=== PATIENT | male | born 1955 | race Caucasian/White ===

== ENCOUNTER 2016-07-29 09:36 | Inpatient (IN) | payer BC ==
[2016-07-29] MEDS ORDERED: SODIUM CHLORIDE 0.9% 1000ML 1,000 ML IV ONE (09:40)
[2016-07-29] MEDS ORDERED: PIPERACILLIN/TAZOBACT 3.375 GM PDS IV ONE ×2 (10:22→14:54)
[2016-07-29] MEDS: SODIUM CHLORIDE 0.9% FLUSH 10 ML SOL IV PRN ×2 (10:26→16:14)
[2016-07-29] MEDS: PIPERACILLIN/TAZOBACT 3.375 GM 3.375 GM in SODIUM CHLORIDE 0.9% 100 ML 100 ML IV SCH ×2 (10:31→15:28)
[2016-07-29] MEDS ORDERED: PROCHLORPERAZINE MALEATE 5 MG TAB PO PRN (12:17)
[2016-07-29] MEDS ORDERED: MAGIC MOUTHWASH 120 ML KIT PO PRN (12:17)
[2016-07-29] MEDS ORDERED: APAP/OXYCODONE 325/5 TAB PO PRN (12:17)
[2016-07-29 14:17] LABS: APPEARANCE,URINE Slightly Cloudy; BILIRUBIN,URINE NEGATIVE (NEGATIVE); COLOR,URINE Yellow; GLUCOSE, URINE (UA) NEGATIVE (NEGATIVE); KETONES,URINE NEGATIVE (NEGATIVE); LEUKOCYTE ESTERASE ,URINE NEGATIVE (NEGATIVE); NITRATE,URINE NEGATIVE (NEGATIVE); OCCULT BLOOD,URINE TRACE LYSED (NEG-TRACE); UROBILINOGEN,URINE 0.2 (0.2-1.0 EU)
[2016-07-29 14:44] LABS: RBC,URINE 0-2 (0-3AV/HPF)
[2016-07-29] MEDS ORDERED: SODIUM CHLORIDE 0.9% 100 ML 100 ML IV ONE (14:54)
[2016-07-29] MEDS ORDERED: FILGRASTIM 480 MCG/1.6 ML SC SCH (15:06)
[2016-07-29] MEDS: ACETAMINOPHEN 500 MG 500 MG TAB PO PRN ×2 (15:08→17:00)
[2016-07-29] MEDS: SODIUM CHLORIDE 0.9% 1000ML 1,000 ML IV ONE ×2 (16:25→17:33)
[2016-07-29] MEDS ORDERED: VANCOMYCIN HCL 500 MG PDS 2,000 MG in SODIUM CHLORIDE 0.9% 500 ML 500 ML IV ONE (16:49)
[2016-07-29] MEDS ORDERED: VANCOMYCIN HYDROCHLORIDE 500 MG PDS IV ONE (16:51)
[2016-07-29] MEDS ORDERED: NOREPINEPHRINE BITARTRATE 4 MG/4 ML SOL IV PRN (18:00)
[2016-07-29] MEDS ORDERED: NOREPINEPHRINE BITARTRATE 4 MG/4 ML SOL IV ONE (18:04)
[2016-07-29 18:06] VITALS: BP 86/39; PULSE 102; RESP 22; TEMP 99.3; O2SAT 96
[2016-07-29] MEDS ORDERED: SENNOSIDES A AND B 8.6 MG TAB PO SCH (21:00)
[2016-07-30] MEDS ORDERED: FILGRASTIM 480 MCG/1.6 ML SC SCH (09:00)
[2016-07-30] MEDS ORDERED: POLYETHYLENE GLYCOL 17 GM/1 TBS PDS PO SCH (09:00)
[2016-07-30] MEDS ORDERED: PANTOPRAZOLE SODIUM 40 MG ECT PO SCH (09:00)
== END 2016-07-29 18:15 | disposition short-term general hospital (02) | DRG 691 ==
LOC: ACUTE CARE 09:36
PROVIDERS: ADMIT Family Medicine; ATTEND Family Medicine
DX: C83.30 Diffuse large B-cell lymphoma, unspecified site (principal); D70.9 Neutropenia, unspecified; R50.81 Fever presenting with conditions classified elsewhere; L03.314 Cellulitis of groin
CPT/HCPCS: 36415; 81001; 87040; 87088; 99070; J2543; J3370

== ENCOUNTER 2016-09-30 10:20 | Emergency (ER) | payer BC ==
[2016-09-30] MEDS: SODIUM CHLORIDE 0.9% 1000ML 1,000 ML IV SCH ×4 (10:45→12:15)
[2016-09-30 10:48] LABS: HEMATOCRIT 19 % (39-53); MEAN CORPUSCULAR HGB CONC 34.4 gm/dl (32.0-36.0); MEAN CORPUSCULAR VOLUME 87 fL (80-100)
[2016-09-30] MEDS ORDERED: VANCOMYCIN HCL 500 MG PDS 1,000 MG in SODIUM CHLORIDE 0.9% 250 ML 250 ML IV ONE (10:48)
[2016-09-30] MEDS: METRONIDAZOLE 500 MG (PREMIX) 500 MG/100 ML SOL IV ONE ×2 (10:49→11:50)
[2016-09-30] MEDS ORDERED: PIPERACILLIN/TAZOBACT 3.375 GM PDS IV ONE (10:49)
[2016-09-30] MEDS ORDERED: SODIUM CHLORIDE 0.9% 1000ML 1,000 ML IV ONE (10:50)
[2016-09-30 10:59] LABS: ALBUMIN 2.9 gm/dl (3.4-5.0); CALCIUM 8.4 mg/dl (8.5-10.1); POTASSIUM 3.9 mMol/L (3.5-5.1)
[2016-09-30] MEDS ORDERED: VANCOMYCIN HYDROCHLORIDE 500 MG PDS IV ONE (11:00)
[2016-09-30] MEDS ORDERED: PIPERACILLIN/TAZOBACT 3.375 GM 3.375 GM in SODIUM CHLORIDE 0.9% 100 ML 100 ML IV SCH (11:00)
[2016-09-30] MEDS ORDERED: METRONIDAZOLE 500 MG (PREMIX) 500 MG/100 ML SOL IV ONE (11:00)
[2016-09-30] MEDS ORDERED: ACETAMINOPHEN 500 MG 500 MG TAB PO ONE (11:28)
[2016-09-30] MEDS ORDERED: ACETAMINOPHEN 500 MG 500 MG TAB ONE (11:38)
[2016-09-30 12:40] VITALS: BP 116/58; PULSE 114; RESP 27; TEMP 100; O2SAT 100
== END 2016-09-30 12:30 | disposition short-term general hospital (02) ==
LOC: ED 10:20
DX: A41.9 Sepsis, unspecified organism (principal); C85.10 Unspecified B-cell lymphoma, unspecified site; N17.9 Acute kidney failure, unspecified; E86.0 Dehydration; D70.9 Neutropenia, unspecified; R50.81 Fever presenting with conditions classified elsewhere; N18.9 Chronic kidney disease, unspecified; E87.2 Acidosis
CPT/HCPCS: 99291 ×3; 71010; 80053; 83605; 85007; 85027; 86140; 87040 ×2; J2543; J3370; 36591; 87077; 87186